=== PATIENT | female | born 1980 | race Asian ===

== ENCOUNTER 2016-05-05 05:42 | Day surgery (SDC) | payer OTHER ==
[~2016-05-05 05:42] MED LIST: IV START KIT ONE; LACTATED RINGERS 1,000 ML ONE
[2016-05-05] MEDS ORDERED: LIDOCAINE 1% 2 ML VIAL ID PRN (05:55)
[2016-05-05] MEDS ORDERED: CEFAZOLIN SODIUM 2 GRAM DUPLEX 2 G in Premix (D5W) 50 ml 1 EACH IV PRN (05:55)
[2016-05-05] MEDS ORDERED: LACTATED RINGERS 1,000 ML IV SCH ×2 (05:55→08:30)
[2016-05-05] MEDS ORDERED: LIDOCAINE 2% (MULTI DOSE) 10 ML VIAL ONE (06:21)
[2016-05-05] MEDS ORDERED: PROPOFOL 20 ML IV ONE (06:21)
[2016-05-05] MEDS ORDERED: DEXAMETHASONE SOD PHOS 4 MG/1 ML VIAL ONE (06:23)
[2016-05-05] MEDS ORDERED: ONDANSETRON 4 MG/2ML 2 ML VIAL ONE (06:23)
[2016-05-05] MEDS ORDERED: DIPHENHYDRAMINE HCL 50 MG/1 ML VIAL ONE (06:23)
[2016-05-05] MEDS ORDERED: FENTANYL 5 ML ONE (06:29)
[2016-05-05] MEDS ORDERED: METOPROLOL TARTRATE 1 MG/ML 5ML VIAL ONE (06:29)
[2016-05-05] MEDS ORDERED: MIDAZOLAM HCL 5 MG/5 ML VIAL ONE (06:30)
[2016-05-05] MEDS ORDERED: BUPIVACAINE 0.75% SPINAL AMPUL 2 ML ONE (06:37)
[2016-05-05 06:45] LABS: HEMATOCRIT 37.2 % (37.0-47.0); HEMOGLOBIN 12.9 gm/l (12.0-16.0); MEAN CORPUSCULAR HEMOGLOBIN 27.7 pg (27.0-31.0); MEAN CORPUSCULAR HGB CONC 34.7 g/dl (33.0-37.0); RED CELL DISTRIBUTION WIDTH 12.3 % (11.5-14.5)
[2016-05-05] MEDS ORDERED: CEFAZOLIN SODIUM 2 GRAM PREMIX 100 ML IV ONE (06:47)
[2016-05-05] MEDS ORDERED: SULFANILAMIDE 15% CREAM 20 APPLIC/120 G TUBE ONE (06:53)
[2016-05-05] MEDS ORDERED: SODIUM CHLORIDE 0.9% 50 ML ONE (06:53)
[2016-05-05] MEDS ORDERED: VASOPRESSIN 20 UNITS/ML VIAL ONE (06:53)
[2016-05-05] MEDS ORDERED: EPIDURAL PROCEDURE TRAY ONE (07:00)
[2016-05-05] MEDS ORDERED: MORPHINE SULFATE (DURAMORPH) 1 MG/ML 10ML AMP ONE (07:24)
[2016-05-05] MEDS ORDERED: EPHEDRINE SULFATE 50 MG/ML 1ML VIAL IV PRN (08:14)
[2016-05-05] MEDS ORDERED: NALOXONE HCL 0.4 MG/ML VIAL IV PRN ×2 (08:14→08:17)
[2016-05-05] MEDS ORDERED: FENTANYL 100 MCG/2 ML VIAL IV PRN (08:17)
[2016-05-05] MEDS ORDERED: PROMETHAZINE HCL 25 MG/ML VIAL IM PRN (08:17)
[2016-05-05] MEDS ORDERED: HYDROMORPHONE HCL 1 MG/ML SYRINGE IV PRN (08:17)
[2016-05-05] MEDS ORDERED: ONDANSETRON 4 MG/2ML 2 ML VIAL IV PRN ×2 (08:17→09:46)
[2016-05-05] MEDS ORDERED: ATROPINE SULFATE 0.4 MG/1 ML VIAL IV PRN (08:17)
[2016-05-05] MEDS ORDERED: ALBUTEROL SULFATE MDI 60 PUFFS/INHALER IH PRN (09:46)
[2016-05-05] MEDS ORDERED: MAG HYDROX/AL HYDROX/SIMETH 30 ML UDCUP PO PRN (09:46)
[2016-05-05] MEDS ORDERED: BLISTEX LIPSTICK 1 EACH TP PRN (09:46)
[2016-05-05] MEDS ORDERED: MENTHOL/CETYLPYRD 1 EACH LOZENGE PO PRN (09:46)
[2016-05-05] MEDS ORDERED: ACETAMINOPHEN 325 MG TABLET PO PRN (09:46)
[2016-05-05] MEDS ORDERED: MAGNESIUM HYDROXIDE/AL HYDROX 30 ML UDCUP PO PRN (09:46)
[2016-05-05] MEDS ORDERED: DIPHENHYDRAMINE HCL 50 MG/1 ML VIAL IV PRN (09:46)
[2016-05-05 10:01] VITALS: BMI 28.8
--- NOTE | 2016-05-05 10:42 | OP ---
Nicol Juarezdkiy DATE: 05/05/2016 SURGEON: Deyvi Mercado M.D. [employer] SURGEON: Mary Galvez. PREOPERATIVE DIAGNOSES: 1. Uterovaginal prolapse, incomplete. 2. Stress urinary incontinence. POSTOPERATIVE DIAGNOSES: 1. Uterovaginal prolapse, incomplete. 2. Stress urinary incontinence. OPERATION: Vaginal hysterectomy, anterior and posterior colporrhaphy, and transobturator sling. ANESTHESIA: Spinal. FINDINGS: There was a third degree uterine prolapse, a cystocele, and a rectocele. TECHNICAL PROCEDURE: After induction of satisfactory spinal anesthesia the patient was placed in the supine lithotomy position and prepped and draped in the usual fashion. A weighted speculum was placed in the vagina and the cervix grasped with a double tooth tenaculum. The cul-de-sac was entered posteriorly using the Polanco scissors. The vaginal cuff was incised circumferentially at this level. Using a knife and the bladder advanced cephalad the vesicouterine peritoneum was indentified and incised with the Polanco scissors and a Glencross retractor placed anterior. The right uterosacral ligament was clamped with a Ken clamp, divided and suture ligated with 0 Vicryl. The same procedure was repeated on the left. The cardinal ligament was clamped with a Ken clamp, divided and suture ligated with 0 Vicryl. The same procedure was repeated on the right. The right uterine artery was clamped with a Ken clamp, divided, and suture ligated with 0 Vicryl. The same procedure was repeated on the left. The left round ligament was clamped with a Ken clamp, divided and suture ligated with 0 Vicryl. The same procedure was repeated on the right. The right uteroovarian ligament and Fallopian tube were then crossed clamped with a Ken clamp and divided. The same procedure was repeated on the left thus removing the uterus. The pedicles thus created were sutured ligated with 0 Vicryl and hemostasis in the pedicles was assured. The peritoneum was closed with purse string suture of 0 Vicryl. Attention was then turned to the anterior colporrhaphy. The anterior vaginal mucosa was grasped between two Allis forceps and incised in the midline and undermined in the midline too within 5 cm of the distal urethral meatus. The mucosa was from the underlying tissues using sharp and blunt dissection. The pubovesical fascia was then plicated under the bladder using interrupted vertical mattress sutures of 0 Vicryl. The excess vaginal mucosa was trimmed away and the mucosa closed with interrupted simple stitches of 3-0 Vicryl. The vaginal cuff was then closed from side to side using interrupted figure of eight sutures of 0 Vicryl. Attention was then turned to the transobturator sling. A 5 cm length of vaginal mucosa under the urethra was grasped between two Allis forceps and infiltrated with a Pitressin solution. Pitressin solution was infiltrated up to the obturator foramen. A longitudinal incision was made in the vaginal mucosa underlying the urethra and using sharp and blunt dissection the mucosa was from the underlying tissues and this dissection carried up to the obturator foramen. The bladder was advanced cephalad using blunt dissection. Incisions were made bilaterally just superior to the insertion of the adductor longus muscle and the Obtryx trocars were then used to place the mesh in the usual fashion. At this point, cystoscopy was performed. There was no evidence of mesh incursion into the bladder and urine was noted to flow freely from both ureteral orifices. The cystoscope was removed. The meshed tensioned and the excess mesh excised. The vaginal mucosa was then closed with interrupted simple sutures of 3-0 Vicryl. The skin incisions were closed with a skin adhesive and Steri-Strips. Attention was then turned to the posterior colporrhaphy. A strip of mucosa was excised from the vaginal fourchette. The posterior vaginal mucosa was then grasped between two Allis forceps and undermined in the midline and incised in the midline to the level of the vaginal cuff. Mucosa was from the underlying tissues using sharp and blunt dissection. The levator muscles were then plicated across the rectum using interrupted horizontal mattress sutures of 0 Vicryl. The excess vaginal mucosa was trimmed away and the mucosa closed using interrupted simple stitches of 2-0 Vicryl. The superficial perineal tissues were then closed using a continuous stitch of 3-0 Vicryl and the same suture was used to close the skin in a subcuticular fashion. The instruments were removed from the vagina. The vaginal packing was placed and the procedure terminated. The patient tolerated the procedure well and left the operating room awake and in good condition. There were no complications. Instrument, needle, and sponge counts were correct. Estimated blood loss was 250 mL. There was no blood replacement. Specimens removed were the uterus. JOB: [id number]
[2016-05-05] MEDS ORDERED: PUMP TUBING ONE (10:46)
[2016-05-05] MEDS: KETOROLAC TROMETHAMINE 30 MG/ML 1 ML VIAL IV SCH ×3 (10:49→21:43)
[2016-05-05] MEDS: D5 1/4NS with 20 mEq KCL 1,000 ML IV SCH ×2 (10:49→19:16)
[2016-05-05] MEDS: HYDROMORPHONE HCL 1 MG/ML SYRINGE IV PRN (20:42)
[2016-05-05] MEDS ORDERED: BECLOMETHASONE DIPROPIONATE IH SCH (21:00)
[2016-05-06] MEDS: HYDROMORPHONE HCL 1 MG/ML SYRINGE IV PRN ×2 (01:13→03:55)
[2016-05-06] MEDS: D5 1/4NS with 20 mEq KCL 1,000 ML IV SCH (02:44)
[2016-05-06] MEDS: KETOROLAC TROMETHAMINE 30 MG/ML 1 ML VIAL IV SCH ×2 (03:55→10:40)
[2016-05-06 06:13] LABS: HEMATOCRIT 30.2 % (37.0-47.0); HEMOGLOBIN 10.5 gm/l (12.0-16.0)
[2016-05-06] MEDS: DOCUSATE SODIUM 100 MG CAPSULE PO PRN ×2 (07:06→07:09)
[2016-05-06 07:51] VITALS: BP 93/49
[2016-05-06] MEDS: CETIRIZINE HCL 10 MG TABLET PO SCH ×2 (08:49→08:50)
[2016-05-06] MEDS: OXYCODONE HCL 5 MG TABLET PO PRN ×2 (08:49→11:14)
--- NOTE | 2016-05-06 09:35 | PDOC5 ---
Hospital Course: ADMIT DATE: DISCHARGE DATE: 05/06/2016 ADMISSION DIAGNOSES: 05/05/2016 PROCEDURES: Vaginal hysterectomy, anterior and posterior colporrhaphy, and transobturator sling HISTORY OF PRESENT ILLNESS: 35 year old presenting with symptoms of uterine prolapse and stress urinary incontinence. HOSPITAL COURSE: The patient on the day of admission was taken to surgery where she underwent surgery. Her postoperative course was uncomplicated. By day of discharge the patient is ambulating, eating, voiding, and passing flatus without difficulty. Pain is controlled. - Objective General: Afebrile, No Acute Distress Abdomen: Soft (Tolerating diet) Genitourinary: Other (Complains of rectsl pressure.) Skin: Normal Color, Warm, Dry Neurological: Grossly Intact, Alert, Oriented x 4 Psych/Mental Status: Normal Affect, Normal Mood - Discharge Plan Condition: Good Disposition: Home Additional Instructions: Maintain pelvic rest. Report if you have heavy bleeding, worsening pain, or a temperature over 100. Prescriptions: Sulfamethoxazole/Trimethoprim [Bactrim Ds Tablet] 1 each PO BEDTIME #10 tablet Docusate Sodium [COLACE 100 MG CAPSULE (SHF)] 100 mg PO BID #30 cap Ibuprofen [Motrin] 800 mg PO Q6H PRN #60 tablet PRN Reason: Pain Oxycodone HCl [ROXICODONE 5 MG IR TABLET (SHF)] 5 mg PO Q4H PRN #30 tab PRN Reason: Pain Follow-Up: Deyvi Mercado MD [Staff Physician] - 05/08/16
--- NOTE | 2016-05-09 15:03 | SURGPATH ---
[facility] [address] [place] [id number] Patient Name: PADMINI THIBODEAUX V. MR#: [id number] : 1980 Gender: F Specimen #: [id number] Collected: 05/05/2016 Received: 05/08/2016 Reported: 05/09/2016 Submitting Phys: DIANN GUNDERSON Copy To Phys: JENELLE JARRELL [facility] Clinical History / Pre-Operative Diagnosis: Female stress incontinence; incomplete uterovaginal prolapse Specimen Source / Surgical Procedure Performed: Uterus with cervix Interpretation: UTERUS AND CERVIX, HYSTERECTOMY: - CERVIX: REACTIVE CERVICITIS - ENDOMETRIUM: NO DIAGNOSTIC ABNORMALITEIS - MYOMETRIUM: LEIOMYOMA Electronically Signed Out Elisha Gómez M.D. Gross Description: The specimen is received in a formalin filled container labeled with the patient's name and "uterus with cervix". A 78 g, intact uterus and cervix is 8.0 x 4.0 x 3.5 cm. The serosa is smooth and valle. The ectocervix is smooth and pale pink. The os and endocervical canal are patent. The endometrium is flat, pink-valle and thinned to 0.1 cm. The dense valle myometrium is thickened to 1.7 cm and contains a single 0.5 cm posterior, bulging, well circumscribed, whorled, white-luna intramural nodule. Summary of sections: A-serosa B-anterior and posterior cervix C and D-anterior endomyometrium E-posterior endomyometrium F-posterior endomyometrium with intact myometrial nodule Willy Bolivar PKwadwo Microscopic Description: Sections of the serosa show no diagnostic abnormalities. The cervix shows no evidence of dysplasia. Reactive cervicitis is seen. The endometrium is late secretory to inactive. The myometrium shows a single leiomyoma without coagulative necrosis, increased mitoses or cytologic atypia. 1: 14740 D25.1 N81.2
== END 2016-05-06 11:50 | disposition home or self-care (01) ==
LOC: SDC 05:42 → MS 09:46 → SDC 05-06 11:50
PROVIDERS: ATTEND Obstetrics & Gynecology
PROC: 0UT97ZZ Resection of Uterus, Via Natural or Artificial Opening (ICD-10-PCS; principal; 2016-05-05)
PROC: 0UTC7ZZ Resection of Cervix, Via Natural or Artificial Opening (ICD-10-PCS; 2016-05-05)
PROC: 0JQC0ZZ Repair Pelvic Region Subcutaneous Tissue and Fascia, Open Approach (ICD-10-PCS; 2016-05-05)
PROC: 0JQC0ZZ Repair Pelvic Region Subcutaneous Tissue and Fascia, Open Approach (ICD-10-PCS; 2016-05-05)
DX: N81.3 Complete uterovaginal prolapse (principal); N39.3 Stress incontinence (female) (male); D25.9 Leiomyoma of uterus, unspecified; N72 Inflammatory disease of cervix uteri; Z88.0 Allergy status to penicillin; Z79.899 Other long term (current) drug therapy
CPT/HCPCS: 58260; 57260; 57288; 85027; 85014; 85018; 36415 ×2; A9270 ×6; J1200; J1170 ×3; J3010; J1100; J2274; J1885 ×5; J2250; J2405; J7120; J7030; J2001; J0690